=== PATIENT | male | born 1985 | race Hispanic/Latino ===

== ENCOUNTER 2016-05-10 15:44 | Emergency (ER) | payer OTHER ==
[~2016-05-10] VITALS: Ht 175.3 cm; Wt 93.0 kg
[2016-05-10 15:48] VITALS: BP 139/69
[2016-05-10] MEDS ORDERED: NASONEX17 GM NASB (16:45)
[2016-05-10] MEDS ORDERED: BROMFED DM COU118 M1 PO (16:45)
[2016-05-10] MEDS ORDERED: AUGMENTIN 875-1 EACH PO (16:45)
--- NOTE | 2016-05-10 16:45 | ED EAR COMPLAINT ---
History of Present Illness General Chief Complaint: Ear Complaints Stated Complaint: "EAR INFECTION" Source: patient Exam Limitations: no limitations Vital Signs & Intake/Output Vital Signs & Intake/Output Vital Signs Date Time Temp Pulse Resp B/P Pulse O2 O2 Flow FiO2 Ox Delivery Rate 05/10 1548 97.7 100 18 139/69 100 Room Air Allergies Coded Allergies: No Known Allergies (05/10/16) Reconcile Medications Amoxicillin/Potassium Clav (Augmentin 875-125 Tablet) 875 MG-125 MG TABLET 1 TAB PO BID OTITIS MEDIA Brompheniramine/Pseudoephed/Dm (Bromfed Dm Cough Syrup) 2 MG-30 MG-10 MG/5 ML SYRUP 5-10 ML PO Q4-6 PRN PRN COUGH Mometasone Furoate (Nasonex) 50 MCG SPRAY.PUMP 2 SPRAY NASB DAILY NASAL CONGESTION Triage Note: PT TO ED FOR R EAR PAIN AND PRODUCTIVE COUGH X 4 DAYS. DENIES FEVER, SOB, RAWLS, NAUSEA, VOMITING OR DIARRHEA. HAS NOT SEEN PCP. Triage Nurses Notes Reviewed? yes Onset: Abrupt Duration: day(s):, constant, continues in ED Timing: recent history Severity: moderate, severe No Modifying Factors: none HPI: 30-year-old male comes into emergency room with complaints of right ear pain. Patient reports she's been sick with a sore throat runny nose and sinus pressure for the past couple days. Ear pain today. Sharp throbbing. Continuous. Nonradiating. Denies any other associated symptoms. (GEOVANNA ANDERSON) Past History Travel History Traveled to [place] past 21 day No Medical History Any Pertinent Medical History? see below for history Neurological: NONE EENT: NONE Cardiovascular: NONE Respiratory: NONE Gastrointestinal: NONE Hepatic: NONE Renal: NONE Musculoskeletal: NONE Psychiatric: NONE Endocrine: NONE Blood Disorders: NONE Cancer(s): NONE Surgical History Surgical History: non-contributory Psychosocial History What is your primary language Greenlandic Tobacco Use: Current Daily Use Daily Tobacco Use Amount/Type: => 5 Cigarettes daily ETOH Use: denies use Illicit Drug Use: denies illicit drug use Family History Hx Contributory? No (GEOVANNA ANDERSON) Review of Systems Review of Systems Constitutional: Reports: no symptoms. EENTM: Reports: no symptoms. Respiratory: Reports: no symptoms. Cardiovascular: Reports: no symptoms. GI: Reports: no symptoms. Genitourinary: Reports: no symptoms. Musculoskeletal: Reports: see HPI. Skin: Reports: no symptoms. Neurological/Psychological: Reports: no symptoms. Hematologic/Endocrine: Reports: no symptoms. Immunologic/Allergic: Reports: no symptoms. All Other Systems: Reviewed and Negative (GEOVANNA ANDERSON) Physical Exam Physical Exam General Appearance: well developed/nourished, mild distress Head: atraumatic Eyes: Bilateral: normal appearance, EOMI. Ears: Bilateral: canal normal, bleeding. Nose: normal inspection Mouth/Throat: normal mouth inspection, pharynx normal Neck: normal inspection Cardiovascular/Respiratory: no respiratory distress Back: normal inspection Neurologic/Psych: awake, alert, oriented x 3, normal mood/affect Skin: intact, normal color, warm/dry (GEOVANNA ANDERSON) Progress Differential Diagnoses I considered the following diagnoses in my evaluation of the patient: Otitis media, otitis externa, sinusitis, strep pharyngitis, upper rest for infection, Plan of Care: 05/10/2016 5:00:03 PM Patient clinically looks well. Nontoxic-appearing. In no apparent distress. Resting comfortably in room. Initial ED EKG: none (GEOVANNA ANDERSON) Departure Departure Disposition: HOME OR SELF CARE Condition: Stable Clinical Impression Primary Impression: Right otitis media Secondary Impressions: Sinusitis Referrals: PATIENT HAS NO PRIMARY CARE DR (PCP/Family) Additional Instructions: Take Augmentin and Nasonex as prescribed. Take Bromfed as prescribed. Follow- up with your primary care doctor. Return if any concerns worsening symptoms. Please go over all results of today's visit with your primary care doctor. Contact your primary care doctor to let them know you were here in the emergency room. There may be nonspecific findings which may not be related to your visit today here in the emergency room but may require further evaluation and chronic monitoring by your primary care doctor. If you had a laceration today the chance of foreign body always remains. You should follow-up with your primary care doctor for recheck in 3-5 days for a wound check. If you had an x-ray done there is a chance that a fracture could have been missed on initial read and you should follow-up with your primary care doctor for repeat x-rays if symptoms persist. If your blood pressure was elevated here in the emergency room please have rechecked by her primary care doctor within the next 48 hours by your primary care doctor. If you were prescribed a narcotic here in the emergency room or any type of controlled substances you're not allowed to drive while taking this medication or operate any type of heavy machinery. Narcotics can make you feel lightheaded dizziness nausea and can cause constipation. You may need to pickle water pump operator a stool softener. Thank you for choosing [facility] emergency room. Please return to the emergency room immediately if you have any other concerns worsening of symptoms. Departure Forms: Customer Survey General Discharge Information Prescriptions: Current Visit Scripts Amoxicillin/Potassium Clav (Augmentin 875-125 Tablet) 1 TAB PO BID #20 TAB Mometasone Furoate (Nasonex) 2 SPRAY NASB DAILY #1 INHAL Brompheniramine/Pseudoephed/Dm (Bromfed Dm Cough Syrup) 5-10 ML PO Q4-6 PRN PRN COUGH #120 ML (GEOVANNA ANDERSON) PA/[employer]IEUTENANT FIREFIGHTER Co-Sign Statement Statement: ED Attending supervision documentation- [x] I saw and evaluated the patient. I have also reviewed all the pertinent lab results and diagnostic results. I agree with the findings and the plan of care as documented in the PA's/LIEUTENANT FIREFIGHTER's documentation. [] I have reviewed the ED Record and agree with the PA's/LIEUTENANT FIREFIGHTER's documentation. [] Additions or exceptions (if any) to the PAs/LIEUTENANT FIREFIGHTER's note and plan are summarized below: [] (BASIL ERICKSON DO
== END 2016-05-10 17:19 ==
LOC: ERH 15:44
DX: H66.91 Otitis media, unspecified, right ear (principal); J32.9 Chronic sinusitis, unspecified; F17.210 Nicotine dependence, cigarettes, uncomplicated

== ENCOUNTER 2016-05-21 21:21 | Emergency (ER) | payer OTHER ==
[~2016-05-21] VITALS: Ht 175.3 cm; Wt 93.0 kg
[~2016-05-21 21:21] MED LIST: AUGMENTIN 875-1 EACH PO; BROMFED DM COU118 M1 PO; NASONEX17 GM NASB
[2016-05-21 21:28] VITALS: BP 133/85
--- NOTE | 2016-05-21 21:39 | ED INFLUENZA/URI COMPLAINT ---
History of Present Illness General Chief Complaint: Ear Complaints Stated Complaint: PT HAS A EAR INFECTION WAS HERE 3WKS AGO Source: patient Exam Limitations: no limitations Vital Signs & Intake/Output Vital Signs & Intake/Output Vital Signs Date Time Temp Pulse Resp B/P Pulse O2 O2 Flow FiO2 Ox Delivery Rate 05/218 97.7 90 20 133/85 98 Room Air ED Intake and Output 05/22 0000 05/21 1200 Intake Total Output Total Balance Patient 205 lb Weight Allergies Coded Allergies: No Known Allergies (05/21/16) Reconcile Medications Amoxicillin/Potassium Clav (Augmentin 875-125 Tablet) 875 MG-125 MG TABLET 1 TAB PO BID OTITIS MEDIA Brompheniramine/Pseudoephed/Dm (Bromfed Dm Cough Syrup) 2 MG-30 MG-10 MG/5 ML SYRUP 5-10 ML PO Q4-6 PRN PRN COUGH Mometasone Furoate (Nasonex) 50 MCG SPRAY.PUMP 2 SPRAY NASB DAILY NASAL CONGESTION Triage Note: TRIAGE: PT TO ER C/C R EAR PAIN SINCE YESTERDAY. WAS TREATED FOR EAR INFECTION 3 WEEKS AGO. HAD BEEN FEELING BETTER UNTIL YESTERDAY. Triage Nurses Notes Reviewed? yes Onset: Gradual Duration: week(s):, waxing and waning Timing: recent history Severity: mild Prior Episodes/Possible Cause: occassional episodes Modifying Factors: Improves With: rest. Associated Symptoms: right ear discomfort HPI: 30-year-old gentleman presents with right ear discomfort. He states that he completed antibiotics for an ear infection approximately 2-3 weeks ago. Since that time he states he has, "the feeling that there is something inside my ear. Like a pressure." He has no fever pain discharge. He has no sinus congestion. He has no decreased hearing. He is otherwise well and has no other concerns. Past History Travel History Traveled to [place] past 21 day No Medical History Any Pertinent Medical History? see below for history Neurological: NONE EENT: NONE Cardiovascular: NONE Respiratory: NONE Gastrointestinal: NONE Hepatic: NONE Renal: NONE Musculoskeletal: NONE Psychiatric: NONE Endocrine: NONE Blood Disorders: NONE Cancer(s): NONE PROGRAM ADVOCATE/Reproductive: NONE Surgical History Surgical History: non-contributory Psychosocial History What is your primary language Singaporean Tobacco Use: Current Daily Use Daily Tobacco Use Amount/Type: => 5 Cigarettes daily ETOH Use: occasional use Illicit Drug Use: denies illicit drug use Family History Hx Contributory? No Review of Systems Review of Systems Constitutional: Reports: no symptoms. EENTM: Reports: no symptoms. Respiratory: Reports: no symptoms. Cardiovascular: Reports: no symptoms. GI: Reports: no symptoms. Genitourinary: Reports: no symptoms. Musculoskeletal: Reports: no symptoms. Skin: Reports: no symptoms. Neurological/Psychological: Reports: no symptoms. Hematologic/Endocrine: Reports: no symptoms. Immunologic/Allergic: Reports: no symptoms. All Other Systems: Reviewed and Negative Physical Exam Physical Exam General Appearance: well developed/nourished, no apparent distress Head: atraumatic, normal appearance Eyes: Bilateral: normal appearance. Ears, Nose, Throat: right ear with fluid behind TM, no erythema. no cerumen Neck: normal inspection, supple, full range of motion Respiratory: normal breath sounds, chest non-tender, no respiratory distress, quiet respiration, lungs clear Cardiovascular: regular rate/rhythm Gastrointestinal: normal bowel sounds, soft, non-tender, no organomegaly Back: normal inspection Extremities: normal inspection Neurologic/Psych: no motor/sensory deficits, awake, alert, oriented x 3 Skin: intact, normal color, warm/dry Core Measures Severe Sepsis Present: No Septic Shock Present: No Progress Differential Diagnosis: otitis media, otitis externa vs serous otitis Plan of Care: pt with benign exam. i doubt acute infection... advocated time and close follow up with ENT. Initial ED EKG: none Departure Departure Disposition: HOME OR SELF CARE Condition: Stable Clinical Impression Primary Impression: Right serous otitis media Referrals: UNKNOWN (PCP/Family) Departure Forms: Customer Survey General Discharge Information
== END 2016-05-21 21:49 ==
LOC: ERH 21:21
DX: H66.91 Otitis media, unspecified, right ear (principal)